=== PATIENT | male | born 1990 | race Two or more races ===

== ENCOUNTER 2017-12-27 11:54 | Outpatient (CLI) | payer OTHER ==
[~2017-12-27] VITALS: Ht 177.8 cm; Wt 77.1 kg
== END 2017-12-27 15:12 | disposition home or self-care (01) ==
LOC: OFIC 805 11:54
DX: H60.593 Other noninfective acute otitis externa, bilateral (principal); H91.8X3 Other specified hearing loss, bilateral

== ENCOUNTER → 2019-04-18 | Outpatient (CLI) | payer OTHER | END | disposition home or self-care (01) | LOC: MAMO-SONO 11:15 → SONOGRAMA 11:26 | DX: E03.8 Other specified hypothyroidism (principal) ==